=== PATIENT | female | born 1955 | race Caucasian/White ===

== ENCOUNTER → 2017-01-05 | Outpatient (CLI) | payer BC ==
[~2017-01-05] MED LIST: BACLOFEN10 MG PO; BACTRIM DS TABL1 TA1 PO; BACTROBAN22 GM TOP; BENAZEPRIL PO; BLOOD PRESSURE MED; CIPRO PO; ESTRACE; ESTRACE1 MG PO; FLEXERIL10 MG PO; FLOMAX0.4 M1 PO; KEFLEX500 MG PO; LEVOTHYROXINE25 MCG PO; LODINE PO; LORTAB 5/500 TA1 TA1 PO; LOTENSIN20 MG PO; MEDROL DOSEPAK4 MG PO; NORCO1 TAB 10/3 PO; NORVASC PO; PRILOSEC PO; REQUIP0.25 MG PO; REQUIP2 MG PO; SYNTHROID; VOLTAREN50 MG PO; ZOFRAN ODT4 MG PO
--- NOTE | ~2017-01-05 | MY11 ---
[facility] A Service of [facility] RADIOLOGY TEXT RESULTS PATIENT: STEWART TEJADA LOCATION: [facility] : 59 UNIT #: [id number] AGE: [address]: Vale Plascencia MANAGER INDUSTRIAL SEX: F ORDER DR: [id number] [facility] [address] [place], [place] [address] [id number] O MR#: [id number] Acc #: [id number] NAME: STEWART TEJADA : 1955 SEX: F STUDY DATE/TIME: 01/05/2017 9:21 UNIT: [facility] ROOM: STUDY DESCRIPTION: MY Mammogram Screening Dig [employer] Attending Physician: Vale Plascencia A.P.R.N. Ordering Physician: Vale Plascencia A.P.R.N. Primary Care Physician: Vale Plascencia A.P.R.N. MEDICAL IMAGING REPORT This report is preliminary unless electronic signature is present EXAM Screening mammogram 01/05/2017 INDICATION 61-year-old with no personal or family history of breast cancer. No current complaints. She has a history of breast reduction surgery. FINDINGS Routine digital screening views of both breasts were obtained. Study is reviewed with an FDA-approved CAD device. Comparison is made with 02/13/2014, 08/18/2011. Breast parenchyma shows scattered fibroglandular densities. There are no masses or suspicious microcalcifications. IMPRESSION Negative mammogram. Routine screen in 1 year recommended. Patients over the age of 40 are entered into a reminder system with target due date for the next mammogram. A result letter will also be sent to the patient. BIRADS: 1 Negative Dictated by... Bridger Hutchison Jr., M.D. THIS IS AN ELECTRONICALLY VERIFIED REPORT Bridger Hutchison Jr., M.D. at 01/05/2017 5:04 PM EARL/[email or web address] [facility] A Service of [facility] RADIOLOGY TEXT RESULTS PATIENT: STEWART TEJADA LOCATION: [facility] : 59 UNIT #: [id number] AGE: [address]: Vale Plascencia SEX: F ORDER DR: TD: 01/05/2017 11:16 JOB #: [id number] MEDICAL IMAGING REPORT Page 1 of 1 COPY
== END | disposition home or self-care (01) ==
LOC: CWCC 09:12
DX: Z12.31 Encounter for screening mammogram for malignant neoplasm of breast (principal); Z98.890 Other specified postprocedural states
CPT/HCPCS: G0202